=== PATIENT | male | born 1955 | race Caucasian/White ===

== ENCOUNTER 2020-11-17 08:32 | Day surgery (SDC) | payer OTHER ==
[2020-11-12 13:07] VITALS: BMI 23.8
[~2020-11-17 08:32] MED LIST: LACTATED RINGERS 1,000 ML IV SCH
[2020-11-17 08:57] VITALS: TEMP 97
[2020-11-17] MEDS ORDERED: LIDOCAINE 1% (10MG/ML) FOR IV START INTRADERMA ONE (08:59)
[2020-11-17] MEDS ORDERED: fentaNYL (PF) 50 MCG/ML 2 ML AMP ONE (09:10)
[2020-11-17] MEDS ORDERED: MIDAZOLAM 2 MG/2 ML VIAL ONE (09:10)
[2020-11-17] MEDS ORDERED: PROPOFOL 10 MG/ML 20 ML VIAL IV ONE (09:10)
[2020-11-17] MEDS ORDERED: LIDOCAINE 1% INJ 10MG/ML (20 ML MDV) ONE (09:10)
--- NOTE | 2020-11-17 09:42 | P.PCN ---
Date of Procedure: 11/17/20 Description of Procedure: BRIEF HISTORY: Patient is a 65-year-old male presenting for outpatient colonoscopy for screening for malignant neoplasm of the colon. He reports last colonoscopy 6 years ago. Previously use of colon polyps. No family history of colon cancer. PROCEDURE PERFORMED: Colonoscopy with polypectomy. PREOPERATIVE DIAGNOSIS: Screening for malignant neoplasm of the colon, less colonoscopy 6 years ago, patient does report a personal history of colon polyps. ESTIMATED BLOOD LOSS: Minimal. IV sedation per Anesthesia. PROCEDURE: After informed consent was obtained, the patient, was brought into the endoscopy unit. IV sedation was administered by Anesthesia under continuous monitoring. Digital rectal examination was normal. Initially the Olympus CF-190 flexible video colonoscope was then inserted in the rectum, gradually advanced into the cecum without any difficulty. Careful examination was performed as the scope was gradually being withdrawn. Ileocecal valve and the appendiceal orifice were visualized and appeared normal. Prep was excellent. Mucosa of the cecum, ascending colon, transverse colon, descending colon, sigmoid colon, and rectum appeared normal. Multiple small and large mouth diverticula noted throughout the entire colon. Diminutive polyps measuring 1-2 mm in length removed from the cecum, ileocecal valve, transverse colon, splenic flexure and rectum with cold forcep polypectomy. Retroflexion was performed in the rectum and no lesions were seen, and moderate internal hemorrhoids noted. The patient tolerated the procedure well. IMPRESSION: 5 diminutive polyps removed from the cecum, ileocecal valve, transverse colon, splenic flexure and rectum with cold forcep polypectomy. Moderate sanders diverticulosis. Internal hemorrhoids. RECOMMENDATIONS: Findings of this examination were discussed with the patient and his family. Okay to resume diet. Okay to resume medications await pathology from polypectomies. Recommend repeat colonoscopy in 5 years for history of colon polyps, pending pathology from polypectomies.
[2020-11-17 09:43] VITALS: RESP 16
[2020-11-17 10:00] VITALS: BP 132/79; PULSE 68
== END 2020-11-17 10:24 | disposition home or self-care (01) ==
LOC: ORWHC2ENDO 08:32
PROVIDERS: ATTEND Internal Medicine
DX: Z12.11 Encounter for screening for malignant neoplasm of colon (principal); D12.0 Benign neoplasm of cecum; D12.3 Benign neoplasm of transverse colon; K64.8 Other hemorrhoids; K57.30 Diverticulosis of large intestine without perforation or abscess without bleeding; I10 Essential (primary) hypertension; Z86.010 Personal history of colon polyps; Z91.048 Other nonmedicinal substance allergy status; Z79.1 Long term (current) use of non-steroidal anti-inflammatories (NSAID); Z79.899 Other long term (current) drug therapy; Z96.653 Presence of artificial knee joint, bilateral; Z98.890 Other specified postprocedural states
CPT/HCPCS: 88305; 45380; J2250; J2001; J3010; J2704